=== PATIENT | male | born 1995 | race Hispanic/Latino ===

== ENCOUNTER 2018-11-29 17:35 | Emergency (ER) | payer SELFPAY ==
[2018-11-29 19:30] LABS: Bilirubin Negative (Negative); Blood, Urine Large (Negative); Clarity CLOUDY (Clear); Glucose, Urine (Dipstick) >=1000 mg/dL (Negative); Leukocyte Small (Negative); Nitrite Negative (Negative); Protein, Urine (Dipstick) Negative (Neg-Trace); pH, Urine 6.5 (5.0-9.0)
[2018-11-29 19:32] LABS: Bacteria/HPF Rare-Few HPF (None Seen); Hyaline Casts/LPF 0-3 HYALINE CAST LPF (0-3 Hyaline); Squamous Epithelial 0-3 HPF (0-3); Yeast-AUWi Flag 41.2 (0-25.0)
[2018-11-29 19:44] LABS: Specific Gravity, Urine 1.048 (1.002-1.036)
[2018-11-29] MEDS ORDERED: Azithromycin 250 MG TAB ONE (19:54)
[2018-11-29] MEDS ORDERED: cefTRIAXone\\ROCEPHIN 250 MG VIAL ONE (19:54)
[2018-11-29] MEDS ORDERED: Lidocaine 1% PF 5 ML VIAL ONE (19:54)
[2018-11-30 19:29] LABS: Chlam.trachomatis by PCR,Urine DETECTED (NotDetected)
== END 2018-11-29 20:19 | disposition home or self-care (01) ==
LOC: ERS 17:35
DX: N39.0 Urinary tract infection, site not specified (principal); Z20.2 Contact with and (suspected) exposure to infections with a predominantly sexual mode of transmission
CPT/HCPCS: 81003; 81015; 87491; 87591; 96372; J0696; J2001

== ENCOUNTER 2019-10-16 02:05 | Emergency (ER) | payer SELFPAY ==
[2019-10-16] MEDS ORDERED: Proparacaine 0.5% Opth 15 ML BOT ONE (02:27)
== END 2019-10-16 02:41 | disposition home health service (06) ==
LOC: ERS 02:05
DX: H20.9 Unspecified iridocyclitis (principal); H10.9 Unspecified conjunctivitis; Y04.8XXA Assault by other bodily force, initial encounter
CPT/HCPCS: 99283

== ENCOUNTER 2021-07-16 13:43 | Inpatient (IN) | payer OTHER, SELFPAY ==
[2021-07-16 14:46] LABS: Actual Bicarbonate (HCO3v) 18 mEq/L (22-28); Analyzer IN Cardio ER; Base Excess -7.8 mEq/L (-2.0 to +3.0); Calcium, Ionized (venous) 1.16 mmol/L (1.16-1.32); Chloride (VBG) 98 mmol/L (98-106); Hemoglobin (Hb) 19.2 g/dL (13.2-17.3); Potassium (VBG) 3.84 mmol/L (3.70-5.30); pH (venous) 7.29 (7.32-7.43)
[2021-07-16 14:58] LABS: #Basophils 0.1 thou/uL (0.0-0.2); #Eosinphils 0.1 thou/uL (0.0-0.7); #Lymphocytes 1.3 thou/uL (1.20-3.40); #Monocytes 0.3 thou/uL (0.11-0.59); #Neutrophils 3.3 thou/uL (1.40-6.50); %Eosinophils 1.2 % (0.0-10.0); %Lymphocytes 25.9 % (21.0-51.0); %Monocytes 6.6 % (0.0-10.0); %Neutrophils 65.2 % (42.0-75.0); Hemoglobin 17.7 g/dL (14.0-18.0); Mean Corpuscular HGB CONC 34.1 g/dL (32.0-36.0); Mean Corpuscular Hemoglobin 29.2 pg (27.0-31.0); Mean Corpuscular Volume 85.6 fL (78.0-98.0); Mean Platelet Volume 6.6 fL (7.4-10.4); Platelet Count 310 thou/uL (130-400); RBC Distribution Width 11.3 % (11.5-14.5); Red Blood Cell (RBC) Count 6.05 mill/uL (4.70-6.10); White Blood Cell (WBC) Count 5.1 thou/uL (4.8-10.8)
[2021-07-16 15:19] LABS: ALT (SGPT) 14 U/L (8-55); AST (SGOT) 15 U/L (5-34); Albumin 4.8 g/dL (3.5-5.0); Alkaline Phosphatase 89 U/L (40-110); Anion Gap 24 mmol/L (10-20); BUN (Urea Nitrogen) 12 mg/dL (8.9-20.6); Bilirubin, Total 2.3 mg/dL (0.2-1.2); Calc. Creatinine Clearance 0 mL/min (70-130); Calcium 9.4 mg/dL (7.8-10.44); Carbon Dioxide 17 mmol/L (22-29); Chloride 100 mmol/L (98-107); Globulin 3.3 g/dL (2.4-3.5); Glucose 254 mg/dL (70-105); Potassium 3.9 mmol/L (3.5-5.1); Protein, Total 8.1 g/dL (6.0-8.3); Sodium 137 mmol/L (136-145)
[2021-07-16] MEDS ORDERED: INSULIN REGULAR IN 0.9 % NACL 100 UNIT/100 ML BAG ONE (15:54)
[2021-07-16] MEDS ORDERED: D5 1/2 NS w/20 mEq KCL 1,000 ML ONE ×2 (16:05→21:45)
[2021-07-16] MEDS: D5 1/2 NS w/20 mEq KCL 1,000 ML IV PRN (17:00)
[2021-07-16 17:46] LABS: Bilirubin Negative (Negative); Blood, Urine Negative (Negative); Clarity Clear (Clear); Glucose, Urine (Dipstick) Greater than 1000 mg/dL (Negative); Ketone, Urine Greater than 150 mg/dL (Negative); Leukocyte Negative Leu/uL (Negative); Nitrite Negative (Negative); Protein, Urine (Dipstick) 20 mg/dL (Neg-Trace); Specific Gravity, Urine 1.043 (1.002-1.036); Urobilinogen Normal mg/dL (Less than 2); pH, Urine 5.5 (5.0-9.0)
[2021-07-16 19:33] LABS: Anion Gap 16 mmol/L (10-20); BUN (Urea Nitrogen) 11 mg/dL (8.9-20.6); Calc. Creatinine Clearance 0 mL/min (70-130); Calcium 8.8 mg/dL (7.8-10.44); Carbon Dioxide 21 mmol/L (22-29); Chloride 105 mmol/L (98-107); Glucose 82 mg/dL (70-105); Potassium 3.3 mmol/L (3.5-5.1); Sodium 139 mmol/L (136-145)
[2021-07-16] MEDS ORDERED: Insulin Regular 300 UNITS/3 ML VIAL ONE (20:23)
[2021-07-16] MEDS ORDERED: Insulin Regular 300 UNITS/3 ML VIAL IVP SCH (22:15)
[2021-07-16] MEDS ORDERED: NS 0.9% w/ 20 MEQ KCL 1,000 ML/1,000 ML BAG IV PRN ×2 (22:15)
[2021-07-16] MEDS ORDERED: Dextrose 50% Abboject 50 ML SYRINGE SLOW IVP PRN (22:15)
[2021-07-16] MEDS ORDERED: HUMULIN R 100 UNITS in Sodium Chloride 0.9% 100 ML IVPB SCH (22:15)
[2021-07-16] MEDS ORDERED: Dextrose 5 %-0.45 % NaCl 1,000 ML IV PRN (22:15)
[2021-07-16] MEDS ORDERED: Dextrose 5% in Water 1,000 ML IV PRN (22:15)
[2021-07-16] MEDS ORDERED: ADD ELECTROLYTE REPLACEMENT SET TO PROFILE FS SCH (22:15)
[2021-07-16] MEDS ORDERED: Sodium Chloride 0.9% 1,000 ML IV PRN ×4 (22:15)
[2021-07-16 23:47] LABS: SARS-CoV-2 PCR by NAA Not Detected (NotDetected)
[2021-07-17] MEDS ORDERED: Dextrose 50% Abboject 50 ML SYRINGE ONE (00:25)
[2021-07-17] MEDS ORDERED: NS 0.9% w/ 20 MEQ KCL 1,000 ML ONE (00:48)
[2021-07-17 02:06] LABS: Anion Gap 14 mmol/L (10-20); BUN (Urea Nitrogen) 11 mg/dL (8.9-20.6); Calc. Creatinine Clearance 0 mL/min (70-130); Calcium 8.6 mg/dL (7.8-10.44); Carbon Dioxide 20 mmol/L (22-29); Chloride 107 mmol/L (98-107); Glucose 166 mg/dL (70-105); Potassium 3.2 mmol/L (3.5-5.1); Sodium 138 mmol/L (136-145)
[2021-07-17] MEDS ORDERED: D5 1/2 NS w/20 mEq KCL 1,000 ML ONE (03:22)
[2021-07-17] MEDS: Potassium Chloride 20 MEQ TAB PO SCH ×2 (03:24→05:02)
[2021-07-17] MEDS ORDERED: Potassium Chloride 20 MEQ TAB ONE ×2 (03:24)
[2021-07-17] MEDS: D5 1/2 NS w/20 mEq KCL 1,000 ML IV PRN (03:25)
[2021-07-17 04:37] VITALS: BMI 23.3
[2021-07-17] MEDS: Potassium Chloride 20 MEQ in Premix Bag 1 BAG IVPB SCH ×2 (05:02→06:51)
[2021-07-17 06:37] LABS: Anion Gap 15 mmol/L (10-20); BUN (Urea Nitrogen) 11 mg/dL (8.9-20.6); Calc. Creatinine Clearance 175 mL/min (70-130); Calcium 8.5 mg/dL (7.8-10.44); Carbon Dioxide 18 mmol/L (22-29); Chloride 107 mmol/L (98-107); Glucose 221 mg/dL (70-105); Potassium 4.1 mmol/L (3.5-5.1); Sodium 136 mmol/L (136-145)
[2021-07-17] MEDS ORDERED: FLU VACC QS2021-22(6MOS UP)/PF 60 MCG/0.5 ML SYRINGE IM ONE (09:00)
[2021-07-17 10:28] LABS: Anion Gap 12 mmol/L (10-20); BUN (Urea Nitrogen) 9 mg/dL (8.9-20.6); Calc. Creatinine Clearance 189 mL/min (70-130); Calcium 8.5 mg/dL (7.8-10.44); Carbon Dioxide 21 mmol/L (22-29); Chloride 107 mmol/L (98-107); Glucose 212 mg/dL (70-105); Potassium 3.9 mmol/L (3.5-5.1); Sodium 136 mmol/L (136-145)
[2021-07-17] MEDS ORDERED: Lantus 1000 UNITS/10 ML VIAL SC SCH (12:45)
[2021-07-17] MEDS ORDERED: HumaLOG 300 UNITS/3 ML VIAL SC SCH ×2 (17:15→21:00)
[2021-07-17 18:34] VITALS: TEMP 98.4
== END 2021-07-17 19:36 | disposition home or self-care (01) | DRG 638 ==
LOC: ERS 13:43 → ERHOLD 16:32 → IMCU/EMU 07-17 04:17
PROVIDERS: ADMIT Internal Medicine; ATTEND Internal Medicine
DX: E10.10 Type 1 diabetes mellitus with ketoacidosis without coma (principal); R45.851 Suicidal ideations; Z20.822 Contact with and (suspected) exposure to COVID-19; Z79.4 Long term (current) use of insulin; E11.649 Type 2 diabetes mellitus with hypoglycemia without coma
CPT/HCPCS: 36415; 36416; 80048; 80053; 81003; 82010; 82805; 85025; J1815; J3480; U0003; U0005

== ENCOUNTER 2024-03-22 20:21 | Emergency (ER) | payer BC, SELFPAY ==
[2024-03-22 21:02] LABS: #Basophils 0.03 10x3/uL (0.0-0.2); %Basophils 0.6 % (0.0-1.0); %Eosinophils 1.4 % (0.0-10.0); %Lymphocytes 39.6 % (21.0-51.0); %Monocytes 8.1 % (0.0-10.0); %Neutrophils 49.9 % (42.0-75.0); Hematocrit 46.9 % (42.0-52.0); Hemoglobin 17.2 g/dL (14.0-18.0); Mean Corpuscular HGB CONC 36.7 g/dL (32.0-36.0); Mean Corpuscular Hemoglobin 30.2 pg (27.0-31.0); Mean Corpuscular Volume 82.4 fL (78.0-98.0); Mean Platelet Volume 8.6 fL (7.4-10.4); Platelet Count 327 10x3/uL (130-400); RBC Distribution Width 10.9 % (11.5-14.5); Red Blood Cell (RBC) Count 5.69 mill/uL (4.70-6.10)
[2024-03-22 21:45] LABS: ALT (SGPT) 12 U/L (8-55); AST (SGOT) 12 U/L (5-34); Albumin 4.6 g/dL (3.5-5.0); Alkaline Phosphatase 87 U/L (40-110); Anion Gap 15 mmol/L (10-20); BUN (Urea Nitrogen) 9 mg/dL (8.9-20.6); Calc. Creatinine Clearance 0 mL/min (70-130); Calcium 10.3 mg/dL (7.8-10.44); Carbon Dioxide 29 mmol/L (22-29); Chloride 102 mmol/L (98-107); Estimated GFR 127; Globulin 3.9 g/dL (2.4-3.5); Glucose 221 mg/dL (70-105); Lipase 9 U/L (8-78); Potassium 3.8 mmol/L (3.5-5.1); Protein, Total 8.5 g/dL (6.0-8.3); Sodium 142 mmol/L (136-145)
[2024-03-22 22:05] LABS: Phosphorus 2.9 mg/dL (2.3-4.7)
[2024-03-22 22:14] LABS: Troponin I Less than 0.010 ng/mL (< 0.028)
[2024-03-22 22:19] LABS: Bilirubin Negative (Negative); Blood, Urine Negative (Negative); CAUTI Indications for Culture Immunosuppressed; Clarity Clear (Clear); Glucose, Urine (Dipstick) Greater than 1000 mg/dL (Negative); Ketone, Urine 60 mg/dL (Negative); Leukocyte 250 Leu/uL (Negative); Nitrite Negative (Negative); Protein, Urine (Dipstick) 20 mg/dL (Neg-Trace); Specific Gravity, Urine 1.041 (1.002-1.036); Urobilinogen 3 mg/dL (Less than 2)
[2024-03-22 22:21] LABS: RBC/HPF 0-3 HPF (0-3)
[2024-03-22 22:22] LABS: Bacteria/HPF Rare-Few HPF (None Seen); Sperm/HPF 3+ HPF (None Seen); Squamous Epithelial 0-3 HPF (0-3)
[2024-03-22 22:24] LABS: Urine Culture Reflex Yes Yes
[2024-03-22 22:35] LABS: Actual Bicarbonate (HCO3v) 24.7 mEq/L (22-28); Base Excess -1.7 mEq/L (-2.0 to +3.0); Chloride (VBG) 100 mmol/L (98-106); Hematocrit-VBG 50 % (42.0-52.0); Hemoglobin (Hb) 17.1 g/dL (13.2-17.3); Potassium (VBG) 3.38 mmol/L (3.70-5.30); Sodium 142 mmol/L (133-146); pH (venous) 7.335 (7.32-7.43)
[2024-03-22] MEDS ORDERED: Pantoprazole DR 40 MG TAB ONE (23:46)
== END 2024-03-22 23:53 | disposition home or self-care (01) ==
LOC: ERS 20:21
DX: E10.65 Type 1 diabetes mellitus with hyperglycemia (principal)
CPT/HCPCS: 36415; 80053; 81001; 82010; 82805; 83690; 84100; 84484; 85025; 87086; 93005; 96360

== ENCOUNTER 2024-04-13 19:15 | Emergency (ER) | payer BC, SELFPAY ==
[2024-04-13] MEDS ORDERED: Ibuprofen 200 MG TAB ONE (19:41)
== END 2024-04-13 20:32 | disposition home or self-care (01) ==
LOC: ERS 19:15
DX: H66.91 Otitis media, unspecified, right ear (principal); E10.9 Type 1 diabetes mellitus without complications; Z91.199 Patient's noncompliance with other medical treatment and regimen due to unspecified reason
CPT/HCPCS: 87081; 87428; 87430; 99283